=== PATIENT | female | born 1995 | race Caucasian/White ===

== ENCOUNTER 2020-04-02 11:06 | Outpatient (CLI) | payer OTHER, SELFPAY ==
--- NOTE | ~2020-04-02 | US_ITS ---
EXAMINATION: US OB <=14 wk fetus w TV DATE: 04/02/2020 12:19 INDICATION: First trimester dating, earlier bleeding TECHNIQUE: Real-time pelvic transabdominal and transvaginal ultrasound was performed. COMPARISON: None. FINDINGS: The uterus measures 6.1 x 6.4 x 6.3 cm. There is an intrauterine gestational sac. A yolk s ac is identified. heart motion is identified measuring 161 beats per minute (bpm) by M-mode Dop pler. The crown rump length measures 13 mm , which correlates with an estimated gestational age of 7 weeks and 3 day(s) (+/-) 5 day(s). The right ovary measures 3.0 x 2.2 x 2.3 cm. The left ovary measures 2.3 x 1.9 x 2.5 cm. There is nor mal vascular flow in the ovaries. There is no free fluid in the pelvis. IMPRESSION: 1. Live intrauterine with an estimated gestational age of 7 weeks and 3 day(s) (+/-) 5 day( s) and an estimated delivery date of 11/16/2020. Reviewed, dictated and finalized at location A. IMPRESSION: 1. Live intrauterine with an estimated gestational age of 7 weeks and 3 day(s) (+/-) 5 day(s) and an estimated delivery date of 11/16/2020.
== END 2020-04-02 11:07 | disposition home or self-care (01) ==
PROVIDERS: PCP Obstetrics & Gynecology; Visit Provider Obstetrics & Gynecology
DX: O26.851 Spotting complicating pregnancy, first trimester (principal)
CPT/HCPCS: 76801; 76817

== ENCOUNTER 2020-05-28 13:09 | Outpatient (CLI) | payer OTHER, SELFPAY ==
[2020-05-28 13:22] LABS: Basophils Absolute Auto 0.02 K/mm3 (0.00-0.10); Basophils Percent Auto 0.2 % (0.0-1.0); Eosinophils Absolute Auto 0.11 K/mm3 (0.02-0.50); Hematocrit 35.6 % (35.0-49.0); Immature Granulocyte Absolute 0.03 K/mm3 (0.00-0.00); Immature Granulocyte Percent A 0.3 % (0.0-0.0); Lymphocytes Absolute Auto 2.17 K/mm3 (1.10-4.50); Lymphocytes Percent Auto 20.2 % (18.0-42.0); Mean Corpuscular HGB Conc 33.7 g/dL (32.0-36.0); Mean Corpuscular Hemoglobin 30.5 pg (27.0-31.0); Mean Corpuscular Volume 90.4 fL (78.0-102.0); Mean Platelet Volume 10.1 fl (9.2-11.8); Monocytes Absolute Auto 0.61 K/mm3 (0.10-0.90); Monocytes Percent Auto 5.7 % (2.0-11.0); Neutrophils Absolute Auto 7.8 K/mm3 (1.7-7.2); Neutrophils Percent Auto 72.6 % (50.0-70.0); Platelet Count Result 411 K/mm3 (150-420); Red Blood Count 3.94 M/mm3 (4.20-5.40); Red Cell Distribution Width 12.4 % (11.6-14.4); White Blood Count 10.8 K/mm3 (4.8-10.8)
[2020-05-28 13:41] LABS: Hemoglobin A1C 5.4 % (<5.7)
[2020-05-28 14:22] LABS: HIV 1 P24 AG Negative (Negative); HIV 1/2 AB Negative (Negative)
[2020-05-31 20:30] LABS: RPR Screen Non-Reactive (Non-Reactive)
[2020-06-01 14:28] LABS: Rubella IgG Antibody 2.68 Index (>=1.00)
[2020-06-02 04:47] LABS: Hepatitis B Surface Antigen Nonreactive (Nonreactive)
[2020-06-02 19:25] LABS: Vitamin D 25 Hydroxy 21 ng/mL (30-100)
== END 2020-05-28 13:10 | disposition home or self-care (01) ==
LOC: CHSLAB 13:12
PROVIDERS: Visit Provider Nurse Practitioner
DX: Z36.9 Encounter for antenatal screening, unspecified (principal)
CPT/HCPCS: 36415; 82306; 83036; 85025; 86592; 86703; 86762; 86850; 86900; 86901

== ENCOUNTER 2020-08-20 09:50 | Outpatient (CLI) | payer OTHER, SELFPAY ==
[2020-08-20 11:16] LABS: Basophils Absolute Auto 0.02 K/mm3 (0.00-0.10); Basophils Percent Auto 0.2 % (0.0-1.0); Eosinophils Absolute Auto 0.06 K/mm3 (0.02-0.50); Eosinophils Percent Auto 0.6 % (1.0-6.0); Hematocrit 31.4 % (35.0-49.0); Hemoglobin 10.4 g/dL (12.0-15.0); Immature Granulocyte Absolute 0.03 K/mm3 (0.00-0.00); Immature Granulocyte Percent A 0.3 % (0.0-0.0); Lymphocytes Absolute Auto 1.62 K/mm3 (1.10-4.50); Lymphocytes Percent Auto 16.8 % (18.0-42.0); Mean Corpuscular HGB Conc 33.1 g/dL (32.0-36.0); Mean Corpuscular Hemoglobin 30.6 pg (27.0-31.0); Mean Corpuscular Volume 92.4 fL (78.0-102.0); Mean Platelet Volume 9.7 fl (9.2-11.8); Monocytes Absolute Auto 0.53 K/mm3 (0.10-0.90); Monocytes Percent Auto 5.5 % (2.0-11.0); Neutrophils Absolute Auto 7.4 K/mm3 (1.7-7.2); Neutrophils Percent Auto 76.6 % (50.0-70.0); Platelet Count Result 404 K/mm3 (150-420); Red Cell Distribution Width 13.1 % (11.6-14.4); White Blood Count 9.6 K/mm3 (4.8-10.8)
[2020-08-20 12:47] LABS: Glucose 1 Hour PP 50gm Dose 143 mg/dL (70-130)
[2020-08-20 13:01] LABS: HIV 1 P24 AG Negative (Negative); HIV 1/2 AB Negative (Negative)
[2020-08-22 19:26] LABS: RPR Screen Non-Reactive (Non-Reactive)
[2020-08-25 12:04] LABS: Vitamin D 25 Hydroxy 19 ng/mL (30-100)
[2020-08-25 12:18] LABS: HSV 1 IgM Screen Negative (Negative); HSV 2 IgM Screen Positive (Negative)
[2020-08-25 12:52] LABS: HSV 2 IgM Titer 1:20 (<1:20)
== END 2020-08-20 09:51 | disposition home or self-care (01) ==
DX: Z34.82 Encounter for supervision of other normal pregnancy, second trimester (principal); Z3A.23 23 weeks gestation of pregnancy
CPT/HCPCS: 36415; 82306; 82947; 85025; 86592; 86695; 86696; 86703

== ENCOUNTER 2020-09-02 08:22 | Outpatient (CLI) | payer OTHER, SELFPAY ==
[2020-09-02 08:51] LABS: Glucose Fasting 80 mg/dL (70-99)
[2020-09-02 09:59] LABS: Glucose 1 Hour 172 mg/dL (<180)
[2020-09-02 11:08] LABS: Glucose 2 Hour 118 mg/dL (<155)
[2020-09-02 12:01] LABS: Glucose 3 Hour 50 mg/dL (<140)
[2020-09-02 13:57] LABS: Glucose Fasting Gestational 80 mg/dL (>/=95)
[2020-09-02 13:58] LABS: Glucose 1 Hour Gest 172 mg/dL (70-130)
[2020-09-02 13:58] LABS: Glucose 3 Hour Gest 50 mg/dL (>/=140)
[2020-09-02 13:58] LABS: Glucose 2 Hour Gest 118 mg/dL (<155)
== END 2020-09-02 08:23 | disposition home or self-care (01) ==
LOC: CHSLAB 08:26
DX: O99.810 Abnormal glucose complicating pregnancy (principal)
CPT/HCPCS: 36415; 82951; 82952

== ENCOUNTER 2025-05-22 09:31 | Emergency (ER) | payer OTHER, SELFPAY ==
[2025-05-22 09:42] VITALS: BP 117/68; PULSE 68; RESP 18; TEMP 36.7; O2SAT 100
--- OUTSIDE RECORDS SUMMARY | 2025-05-22 09:45 | XMS_ITS | Clinical Summary ---
Author Organization [facility] Building B Address [address] [place] [address] Care Team Providers Care Mechanical Cad Drafter Name Role Phone No, Physician Primary Care Provider [phone] Reji Dove MD Unavailable [phone] Allergies No known active allergies Medications predniSONE (DELTASONE) 10 mg tabletIndication s:Contact dermatitis due to plants, except food, unspecified contact dermatitis type Take 4 tablets days 1 & 2, take 3 tablets days 3 & 4, take 2 tablets days 5 & 6, take 1 tablet days 7-10 22 tablet 4 Active Additional Information Patient not taking.Reported on 05/22/2025 hydrOXYzine (ATARAX) 25 mg tablet TAKE 1 TABLET BY MOUTH 3 TIMES A DAY NEEDED FOR ANXIETY. 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 H/O abnormal cervical Papanicolaou smear 020 Overview (06/26/2020): Positive HR HPV in 05/2017. History of back injury 06/26/2020 Overview (06/26/2020): Lower back injury after falling off 14 foot ladder with shattered vertebrae in 2017. Resolved Problems Problem Noted Date Diagnosed Date Resolved Date Low-lying placenta 06/26/2020 0 Overview (07/19/2020): Posterior 15 mm from internal os at 19 wk anatomy scan. Lower back injury 06/26/2020 06/26/2020 Encounters Date Type Department Care Team Description 05/22/2025 9:00 AM CDT Office Visit [facility] [place] [address] [place] [address] Dayanara Zepeda, FORENSIC BALLISTICS EXPERT Arrived from Last 3 Months Immunizations Immunization Administration Dates Next Due Influenza, Quadrivalent, Spl it, Preservative Free, Intramuscular 07/24/2020 Tdap 10/15/2020 Medical History Medical History Date Comments Back injury 2017 Social History Tobacco Use Types Packs/Day Years Used Date Smoking Tobacco: Never Smokeless Tobacco: Never Tobacco Cessation:Counseling Given: Not Answered Alcohol Use Standard Drinks/Week Comments Not Currently 0 (1 standard drink = 0.6 oz pur e alcohol) Personal Safety Answer Date Recorded Have you ever been in or are you currently in a harmful physical or emotional relationship or is someone making you feel afraid or unsafe? Denies 12/18/2023 Comments No Sex and Gender Information Value Date Recorded Sex Assigned at Not on file Legal Sex Female 12:13 PM CDT Gender Identity Not on file Sexual Orientation Not on file Obstetrics History Para Term AB IAB SAB Ectopic Multiple Livin g Live Births 2 2 2 0 2 2 Date Outcome GA Total Labor Labor/2nd/3rd Weight Sex Type Anes PTL Camilla A1 A5 Name Clin 9 Term 38w 0d F Vag-S pont N Livin g 2020 Term 38w 6d 3h 49m 3h 35m/0h 10m/0h 04m 4.019 kg (8 lb 13.8 oz) M Vag-S pont Local N Livin g 8 9 Von QUIÑONES, Michelle jean baptisteh, MD Complications:None Delivery Location:This Facil ity ([facility]) Last Filed Vital Signs Vital Sign Reading Time Taken Comments Blood Pressure 122/68 05/22/2025 8:57 AM CDT Pulse 82 05/22/2025 8:57 AM CDT Temperature 36.1 C (97 F) 05/22/2025 8:57 AM CDT Respiratory Rate 18 05/22/2025 8:57 AM CDT Oxygen Saturation 98% 05/22/2025 8:57 AM CDT Inhaled Oxygen Concentration - - Weight 79.8 kg (176 lb) 05/22/2025 8:57 AM CDT Height 170.2 cm (5' 7) 05/22/2025 8:57 AM CDT Body Mass Index 27.57 05/22/2025 8:57 AM CDT Plan of Treatment Health Maintenance Due Date Last Done Comments Depression Screening 1994 Hepatitis C Screening 1994 Varicella Vaccines (1 of 2 - 13+ 2-dose series) 2007 Hepatitis B Screening 2012 HPV Vaccines (1 - 3-dose SCD M series) 2021 Cervical Cancer Screening 01/24/20232021, 12/21/2020 Regular Well Visit/Exam 18-64 01/24/2023 01/24/2022 Influenza Vaccine (#1) 2025 07/24/2020 DTaP/Tdap/Td Vaccine (2 - Td or Tdap) 10/15/2030 10/15/2020 Pneumococcal vaccine <65 Aged Out No longer eligible based on patient's age to complete this topic Procedures Procedure Name Priority Date/Time Associated Diagnosis Comments PAP WITH REFLEX TO HIGH RISK HPV Routine 01/24/2022 10:07 AM CDT Well woman exam from Last 3 Months or Most Recently Relevant to Health Maintenance Results * Pap with reflex to High Risk HPV (01/24/2022 10:07 AM CDT) CLINICAL INFORMATION: Ailyn Becker Comment:Routine exam LMP Ailyn Becker Comment:01/08/2022 Previous Pap Ailyn Becker Comment:INFORMATION NOT PROV IDED Prev. Bx Ailyn Becker Comment:INFORMATION NOT PROV IDED SOURCE: Ailyn Becker Comment:Cervix, Endocervix Pap, specimen adequacy Ailyn Becker Comment: Satisfactory for evaluation. Endocervical/transformation zone component present. HPV interp Ailyn Becker Comment:Negative for intraep ithelial lesion or malignancy. COMMENTS Ailyn Becker Comment: This Pap test has been evaluated with computer assisted technology. Syrup Maker [facility] st Mario Becker Comment: MEF, CT(ASCP) CT screening location: [place] [address] Administration MARNIE [place] [id number] Comment Ailyn Becker Comment: EXPLANATORY NOTE: The Pap is a screening test for cervical cancer. It is not a diagnostic test and is subject to false negative and false positive results. It is most reliable when a satisfactory sample, regularly obtained, is submitted with relevant clinical findings and history, and when the Pap result is evaluated along with historic and current clinical information. Thin prep 01/24/2022 10:0 7 AM CDT 01/24/2022 9:32 PM CDT us Reji Dove MD LAB CYTOLOGY ORDERABLES Fi nal Result [place] [address] Administration [place]ARNIE [place] [phone] from Last 3 Months or Most Recently Relevant to Health Maintenance Insurance [employer] [facility] [employer] [place] EXCHANGE Advance Directives For more information, please contact: [phone] * Full Code (Latest Code Status on File) Date Activated Date Inactivated Comments 11/08/2020 5:48 AM 11/09/2020 8:37 PM * Full Code Date Activated Date Inactivated Comments 11/07/2020 11:07 PM 11/08/2020 5:48 AM Full CPR in case of cardiopulmonary arrest Care Teams Mechanical Cad Drafter Relationship Specialty Start Date End Date No, Physician PCP - General 05/26/20 Reji Dove MD [address] [facility] [address] العلي [address] [place] [id number] Weights And Measures Inspector Obstetrics and Gynecology 11/09/20
--- OUTSIDE RECORDS SUMMARY | 2025-05-22 09:46 | XMS_ITS | Clinical Summary ---
Author Organization [facility] Address [address] [place] [address] Phone Care Team Providers Care Evp Strategy Name Role Phone Provider, None Primary Care Provider Unavailabl e Allergies No known active allergies Medications methylPREDNISol one (Medrol) 4 MG Tablet Therapy PackIndications :Viral pharyngitis Use as per instructions on package. 21 Tablet Active Active Problems No known active problems Social History Tobacco Use Types Packs/Day Years Used Date Smoking Tobacco: Never Smokeless Tobacco: Never Tobacco Cessation:Counseling Given: Not Answered Alcohol Use Standard Drinks/Week Comments Yes 0 (1 standard drink = 0.6 oz pur e alcohol) occasional Comments Unknown Sex and Gender Information Value Date Recorded Sex Assigned at Not on file Legal Sex Female 8:30 AM CDT Gender Identity Not on file Sexual Orientation Not on file Last Filed Vital Signs Vital Sign Reading Time Taken Comments Blood Pressure 104/66 01/05/2023 8:50 AM CDT Pulse 74 01/05/2023 8:50 AM CDT Temperature 37 C (98.6 F) 01/05/2023 8:50 AM CDT Respiratory Rate 18 01/05/2023 8:50 AM CDT Oxygen Saturation 98% 01/05/2023 8:50 AM CDT Inhaled Oxygen Concentration - - Weight - - Height - - Body Mass Index - - Plan of Treatment Health Maintenance Due Date Last Done Comments Hepatitis C Virus (HCV) Screening 1994 Hepatitis B Immunization (1 of 3 - 19+ 3-dose series) 2013 Pap Smear 2015 Human Papillomavirus (HPV) Immunization (1 - 3-dose SCDM series) 2021 SARS-COV-2 Immunization ( season) 2024 Cervical Cancer Screening (CCS) 2024 HPV/Cotest 2024 Influenza Immunization (#1) 06/09/202507/09, 07/24/2020 Respiratory Syncytial Virus (RSV) Immunization (Adult) (1 - 1-dose 75+ series) 2069 DTaP/Tdap/Td Immunization Discontinued 10/15/2020 TdaP Immunization Completed 10/15/2020 Meningococcal Immunization (ACWY) Aged Out No longer eligible based on patient's age to complete this topic Pneumococcal Immunization Combined Aged Out No longer eligible based on patient's age to complete this topic Rotavirus Immunization Aged Out No lo nger eligible based on patient's age to complete this topic Insurance [employer] [facility] OAP Care Teams Evp Strategy Relationship Specialty Start Date End Date Provider, None [place] PCP - General 01/05/23
--- OUTSIDE RECORDS SUMMARY | 2025-05-22 09:46 | XMS_ITS | Encounter Summary ---
Author Organization [facility] Healthcare Address [address] [place] [address] Care Team Providers Care Compensation Vice President Name Role Phone No, Physician Primary Care Provider [phone] Reji Dove MD Unavailable [phone] Reason for Visit * Reason Comments Hand Pain Pt is here today as she ripped her acrylic nail on her right pinky and it got her real fingernail. Encounter Details Date Type Department Care Team (Late st Contact Info) Description 05/22/2025 9:00 AM CDT Office Visit [facility] [place] [address] [place] [address] Dayanara Zepeda, GLUTEN SETTLING TENDER [address] [place] [address] Arrived Social History Tobacco Use Types Packs/Day Years Used Date Smoking Tobacco: Never Smokeless Tobacco: Never Alcohol Use Standard Drinks/Week Comments Not Currently [...] on file Sexual Orientation Not on file documented as of this encounter Last Filed Vital Signs Vital Sign Reading [...] Mass Index 27.57 05/22/2025 8:57 AM CDT documented in this encounter Plan of Treatment Not on file documented as of this encounter Visit Diagnoses Not on filedocumented in this encounter Care Teams Compensation Vice President Relationship Specialty Start Date End Date No, Physician PCP - General 05/26/20 Reji Dove MD [address] [facility] [address] العلي [address] [place] [id number] System Administrator Obstetrics and Gynecology 11/09/20 documented as of this encounter
--- OUTSIDE RECORDS SUMMARY | 2025-05-22 09:46 | XMS_ITS | Clinical Summary ---
Author Organization [facility] Address [address] [place] [address] Care Team Providers Care Manager Data Warehousing Name Role Phone Claudia Cummins [facility] Primary Care Provider + Allergies No known active allergies Medications hydrOXYzine (ATARAX) 25 MG tabletIndication s:Primary insomnia,Anxiety Take 1 tablet (25 mg total) by mouth 3 (three) times daily as needed for Anxiety. 30 tablet 2 07/11/2022 Active Vitamin D3, cholecalciferol, 2000 UNIT Tab tablet Take 2,000 Units by mouth daily. Active Active Problems Problem Noted Date Diagnosed Date Chronic neck and back pain 07/11/2022 Hypoglycemia 07/11/2022 Primary insomnia 07/11/2022 Anemia, unspecified type 07/11/2022 Anxiety 01/08/2019 Resolved Problems Problem Noted Date Diagnosed Date Resolved Date Post- depression 01/08/201907/11 Immunizations Immunization Administration Dates Next Due Influenza Adult (Generic) 07/24/2020 Tdap (Generic) 10/15/2020 Family History Medical History Relation Comments No Known Problems Father CHF Maternal Grandfather Heart Disease Maternal Grandfather Heart Disease Mother Relation Status Comments Father Alive Maternal Grandfather Mother Alive Social History Tobacco Use Types Packs/Day Years Used Date Smoking Tobacco: Every Day Smokeless Tobacco: Never Alcohol Use Standard Drinks/Week Comments Yes 0 (1 standard drink = 0.6 oz pur e alcohol) Occasionally Comments No Sex and Gender Information Value Date Recorded Sex Assigned at Not on file Legal Sex Female 10:13 AM CDT Gender Identity Not on file Sexual Orientation Not on file Last Filed Vital Signs Vital Sign Reading Time Taken Comments Blood Pressure 94/67 07/11/2022 9:40 AM CDT Pulse 72 07/11/2022 9:40 AM CDT Temperature 36.7 C (98 F) 07/11/2022 9:40 AM CDT Respiratory Rate 18 07/11/2022 9:40 AM CDT Oxygen Saturation 98% 07/11/2022 9:40 AM CDT Inhaled Oxygen Concentration - - Weight 78 kg (172 lb) 07/11/2022 9:40 AM CDT Height 170.2 cm (5' 7) 07/11/2022 9:40 AM CDT Body Mass Index 26.94 07/11/2022 9:40 AM CDT Plan of Treatment Health Maintenance Due Date Last Done Comments Cervical Cancer Screening Pa p Smear (Age 30 to 64) Every 3 Years 1994 Annual Physical 1997 Hepatitis C 2012 Hepatitis B Vaccines (1 of 3 - 19+ 3-dose series) 2013 Pneumococcal Vaccine: Pediat rics (0 to 5 Years) and At-Risk Patients (6 to 49 Years) (1 of 2 - PCV) 2013 HPV Vaccines (1 - 3-dose SCD M series) 2021 COVID-19 Vaccine ( - 2023-2 5 season) 2024 PHQ-2 (Physician [place]) 10/09/2024 Cervical Cancer Screening Pa p with HPV Testing (Age 30 to 64) Every 5 Years 2024 Cervical Cancer Screening with HPV 2024 DTaP, Tdap and Td Vaccines ( 2 - Td or Tdap) 10/15/2030 10/15/2020 Meningococcal B Vaccine Aged Out No l onger eligible based on patient's age to complete this topic Meningococcal Vaccine Aged Out No florinda jes eligible based on patient's age to complete this topic RSV Immunizations Under 20 Months Aged Out No longer eligible based on patient's age to complete this topic Insurance [employer] Member Subscriber Plan / Payer (Ef fective 2022-Present) Name:Tay cMhughDiego Ayanna Member ID:Not on file Relation to Subscriber:Spouse Name:GRACE AGUDELO Date of :1991 (Home) Address: [place] [address] Payer ID:Not on file Type:Not on file Address: [facility] [id number] [place] [id number] Care Teams Manager Data Warehousing Relationship Specialty Start Date End Date Claudia Cummins, REST ROOM MAID-BC [address] [place] [address] PCP - General NURSE PRACTITIONER 12/07/22
[2025-05-22] MEDS: LIDOCAINE 1% LOCAL INJ 2 ML AMPUL 6 ML INFILTRATE (09:52)
--- NOTE | 2025-05-22 10:27 | ED.SKABFB ---
HPI - Skin/Abscess/Foreign Bdy General Chief complaint: Skin/Abscess/Foreign Body Stated complaint: Left pinky fingernail Time Seen by Provider: 05/22/25 09:55 Source: patient and RN notes reviewed Mode of arrival: ambulatory Limitations: no limitations History of Present Illness HPI narrative: Patient presents today from a different Urgent Care complaining of a partial avulsion of her right 5th fingernail that occurred this morning. States she struck her fingernail on a door frame, partially dislodging it. She does have some acrylic fingernails in place. The other urgent care called stating they did not have experience putting the fingernail back in place and were sending her to us. Patient is up-to-date on her tetanus vaccine. Related Data Home Medications ?Medication ?Instructions ?Recorded ?Confirmed ?Last Taken ?Type finasteride 1 mg tablet mg 05/22/25 Unknown History hydroxazine 05/22/25 Unknown History magnesium 05/22/25 Unknown History Allergies Allergy/AdvReac Type Severity Reaction Status Date / Time doxycycline Allergy Intermediate Migraine Verified 05/22/25 09:58 PMFSH Comments At time of signature, I have reviewed and agree with nursing past medical, surgical, social and family history unless otherwise noted. Please see nursing chart for further information. There is no relevant family history pertinent to the presenting complaint Exam Narrative: GENERAL: Well-appearing, well-nourished, and in no acute distress. HEAD: Normocephalic, atraumatic. EYES: EOMI. No redness or drainage. Conjunctivae normal. ENT: Mucous membranes pink and moist. NECK: Normal AROM. CHEST: No respiratory distress. EXTREMITIES: Right 5th finger: Acrylic nail in place. Fingernail is dislodged from most of the cuticle and 1 nail fold, but is still attached from the other nail fold and cuticle. See procedure note. Distal sensation intact. Capillary refill normal. Full range of motion of the finger. SKIN: Warm, dry, no rash. Capillary refill normal. Normal skin turgor. NEURO: No focal deficits. Alert and oriented x3. Gait steady. PSYCH: Normal affect. No signs of depression or anxiety. Course Course Emergency Course: Finger cleansed with wound cleanser and saline prior to procedure. Level of Care: Express Care Visit Vital Signs Vital signs: Vital Signs Temperature 98.0 F 05/22/25 09:42 Pulse Rate 68 05/22/25 09:42 Respiratory Rate 18 05/22/25 09:42 Blood Pressure 117/68 05/22/25 09:42 Pulse Oximetry 100 05/22/25 09:42 Oxygen Delivery Room Air 05/22/25 09:42 Temperature 98.0 F 05/22/25 09:42 Pulse Rate 68 05/22/25 09:42 Respiratory Rate 18 05/22/25 09:42 Blood Pressure 117/68 05/22/25 09:42 Pulse Oximetry 100 05/22/25 09:42 Oxygen Delivery Room Air 05/22/25 09:42 Reviewed Procedures Nerve Block Nerve Block 1: Nerve block date: 05/22/25 Nerve block time: 09:59 Local Anesthetic: lidocaine 1% and with epi Amount of anesthesia used (mL): 5 Side: right Nerve Blocks: digital Procedure Successful: Yes Patient Tolerated Procedure: well Complications: none Other Procedure Procedure 1: Other Procedure: Partial fingernail avulsion. Right 5th fingernail your was partially displaced. Digital block was performed and anesthesia was achieved. Fingernail was replaced underneath the cuticle, back to baseline position. Steri-Strips and glue applied. Patient tolerated procedure well. MDM - Skin/Abscess/Foreign Bdy MDM Narrative Medical decision making narrative: 29-year-old female patient presents today with partial fingernail avulsion. She struck her fingernail on a door frame this morning and dislodged the finger nail from the cuticle and 1 nail fold. Digital block was placed and anesthesia achieved. Finger was cleansed and fingernail was replaced to anatomical position easily with forceps. Steri-Strips and glue applied to keep fingernail in place. Patient shows this instead of sutures. Discussed the importance of keeping the fingernail and placed to protect the nail bed. Vital signs stable. Anticipatory guidance given. Differential Diagnosis Differential diagnosis: Likely other (Partial nail avulsion, full fingernail avulsion, nail bed laceration) Critical Care Time Critical Care Time Critical Care Time: No Discharge Plan Discharge Clinical Impression: Partial avulsion of fingernail Qualifiers: Encounter type: initial encounter Qualified Code(s): S61.309A - Unspecified open wound of unspecified finger with damage to nail, initial encounter Patient Disposition: Home Condition: Stable Additional Instructions: Your fingernail has been replaced to its normal position. The Steri-Strips and glue has been applied to keep it in position while a new fingernail grows in its place. The glue and Steri-Strips will fall off on its own in approximately 1 week. If you can apply a new Steri-Strips to keep it in place, this would be ideal. Take Tylenol or ibuprofen if needed for discomfort. Follow-up with your PCP with any additional concerns. Patient Language: Maori Prescriptions: No Action finasteride 1 mg tablet magnesium hydroxazine Follow-up/Referrals: PHYSICIAN,EMERGENCY SERVICES DIRECTOR [Primary Care Provider] - Time of Disposition: 10:30
== END 2025-05-22 10:37 | disposition home or self-care (01) ==
PROVIDERS: Emergency Provider Nurse Practitioner
DX: S61.306A Unspecified open wound of right little finger with damage to nail, initial encounter (principal); W22.09XA Striking against other stationary object, initial encounter
CPT/HCPCS: 11760; 99202; G0463; J2003